=== PATIENT | female | born 1960 | race Caucasian/White ===

== ENCOUNTER → 2018-05-13 06:18 | Outpatient (CLI) | payer OTHER, SELFPAY ==
--- NOTE | 2018-05-13 | DI.MRI.S_ITS ---
PROCEDURE: MR KNEE LT WO CON INDICATIONS: PAIN IN LEFT KNEE TECHNIQUE: Noncontrast sagittal PD fast spin echo and T2 fast spin echo with fat saturation, sagittal 3-D FLASH with fat saturation; coronal T1 spin echo and PD fast spin echo with fat saturation, and axial PD fast spin echo with fat saturation through the knee. COMPARISON: None. FINDINGS: Image quality: Excellent. Menisci: Linear oblique high T2 signal intensity traverses the medial meniscal body and posterior horn, demonstrating inferior articular surface extension, indicating oblique tearing. Lateral meniscus is intact. Cruciate ligaments: The anterior and posterior cruciate ligaments appear intact. Medial structures: The medial collateral ligament appears intact. Visualized portions of the pes anserinus tendons appear normal. No abnormal bursal fluid. Lateral structures: The lateral collateral ligament, long and short heads of the biceps femoris tendon appear intact. The popliteus tendon appears normal. Iliotibial band appears normal. Anterior structures: The quadriceps and patellar tendons appear intact. Mild T2 signal elevation within the patellar tendon at the patellar insertion site. Patellar alignment is normal. No femoral trochlear dysplasia or ventral trochlear prominence. No edema in the infrapatellar fat pad. Bones and cartilage: No bone marrow contusions or fractures. There is a 4 mm diameter moderate grade region of articular cartilage loss overlying the medial patellar facet. Mild diffuse articular cartilage loss overlies the weightbearing aspects of the medial femoral condyle and medial tibial plateau. Joint space: There is a small knee joint effusion and a trace Ward's cyst. Normal appearing synovial plicae are incidentally noted. IMPRESSION: 1. Medial meniscal tear. 2. Medial and patellofemoral compartment articular cartilage loss. 3. Mild patellar tendinitis. Dictated by: Sarah Sheriff M.D. on 05/13/2018 at 10:19 Approved by: Sarha Sheriff M.D. on 05/13/2018 at 10:21
== END ==
PROVIDERS: Visit Provider Family Medicine
DX: S83.242A Other tear of medial meniscus, current injury, left knee, initial encounter (principal); M25.562 Pain in left knee; M76.52 Patellar tendinitis, left knee
CPT/HCPCS: 73721

== ENCOUNTER → 2018-10-23 13:39 | Outpatient (CLI) | payer OTHER, SELFPAY ==
--- NOTE | 2018-10-23 | DI.ECHO.S_ITS ---
[facility] +---------+ : : [address] : [address] : : : : [id number] : : : : Phone: [phone] Echocardiogram Report + + :Name: MARY GAITAN Study Date: 10/23/2018 Height: 65 in : :[facility] Exam Location: [facility] Weight: 185 lb : : Gender: Female BSA: 1.9 m2 : :: 1960 Age: 58 yrs BP: 122/75 mmHg: :Reason For Study: TACHYCARDIA : : Performed By: Ant Calvillo : :Referring: HIMANSHU HUI : + + Interpretation Summary The left ventricle is normal in size. The ejection fraction is estimated to be 60-65%. There are no focal wall motion abnormalities. The right ventricle is normal in size and function. Pulmonary artery pressures cannot be estimated because of the lack of a measurable TR jet velocity but the IVC suggests a CVP of around 3 mmHg. There is no prior echocardiogram noted for this patient. Procedure: A two-dimensional transthoracic echocardiogram with color flow and Doppler was performed. The study quality was technically adequate. There is no prior echocardiogram noted for this patient. The patient was in normal sinus rhythm during the exam. Left Ventricle: The left ventricle is normal in size. There is normal left ventricular wall thickness. The ejection fraction is estimated to be 60-65%. There are no focal wall motion abnormalities. Right Ventricle: The right ventricle is normal in size and function. Atria: The left atrial size is normal. Right atrial size is normal. There is no Doppler evidence for an interatrial shunt. Mitral Valve: The mitral valve is normal in structure and function. There is trace mitral regurgitation. Aortic Valve: The aortic valve is trileaflet. The aortic valve opens well. There is no aortic valve stenosis. There is mild aortic regurgitation. Tricuspid Valve: The tricuspid valve is normal in structure and function. There is trace tricuspid regurgitation. Pulmonary artery pressures cannot be estimated because of the lack of a measurable TR jet velocity but the IVC suggests a CVP of around 3 mmHg. Pulmonic Valve: The pulmonic valve is not well visualized. Great Vessels: The aortic root is normal size. The ascending aorta is at the upper limits of normal in size. The pulmonary artery is normal size. The IVC is of normal diameter and collapses greater than 50% with a sniff. This suggests a low right atrial pressure of 3 mm Hg. Pericardium/ Pleura There is no pericardial effusion. There is no pleural effusion. MMode/2D Measurements & Calculations LVIDd: 4.1 cm LVOT diam: 2.0 cm LVIDs: 2.7 cm Ao root diam: 2.8 cm FS: 33.9 % Aortic Jxn: 2.4 cm EPSS: 0.35 cm asc Aorta Diam: 3.5 cm IVSd: 0.82 cm Ao Arch Diam (Prox Trans): 2.6 cm LVPWd: 1.1 cm LV palacios. diameter/BSA (cm/m^2): 2.1 LV sys. diameter/BSA (cm/m^2): 1.4 LA dimension: 3.5 cm RA long axis: 4.9 cm LA A2 area: 20.8 cm2 RA area: 16.4 cm2 LA A4 area: 19.4 cm2 RA vol: 46.4 ml LA length (vol): 5.4 cm RA : 24.2 ml/m2 LA vol: 64.2 ml IVC diam: 1.9 cm LA vol index: 33.5 ml/m2 Doppler Measurements & Calculations Ao V2 max: 146.8 cm/sec LVOT Max Christopher: 125.3 cm/sec Ao V2 mean: 103.2 cm/sec LV V1 max P.3 mmHg Ao max P.6 mmHg LV V1 VTI: 25.1 cm Ao mean P.8 mmHg KELLY(I,D): 2.4 cm2 Ao V2 VTI: 32.0 cm KELLY(V,D): 2.6 cm2 sev ratio: 0.78 KELLY indexed to BSA (cm^2/m^2): 1.3 AI P1/2t: 772.1 msec AI dec slope: 131.3 cm/sec2 MV E max christopher: 89.8 cm/sec TR max christopher: 213.0 cm/sec MV A max christopher: 70.4 cm/sec TR max P.1 mmHg MV E/A: 1.3 PA V2 max: 80.7 cm/sec Med Peak E' Christopher: 7.0 cm/sec PA V2 mean: 59.8 cm/sec E/E' med: 12.8 PA mean P.6 mmHg Lat Peak E' Christopher: 9.5 cm/sec PA pr(Accel): 44.1 mmHg E/E' lat: 9.5 PA Accel Time: 0.08 sec E/e' average: 11.1 MV dec time: 0.17 sec SV(LVOT): 77.0 ml Electronically signed by: Chris Duke M.D. on Reading Physician:10/24/2018 12:10 AM
== END ==
PROVIDERS: PCP Family Medicine; Visit Provider Physician Assistant
DX: I35.1 Nonrheumatic aortic (valve) insufficiency (principal); R00.0 Tachycardia, unspecified
CPT/HCPCS: 93306